=== PATIENT | male | born 1960 | race Two or more races ===

== ENCOUNTER → 2025-05-31 | Day surgery (SDC) | payer OTHER ==
[~2025-05-31] VITALS: Ht 180.3 cm; Wt 76.2 kg
[~2025-05-31] MED LIST: HEPARIN SODIUM (PORCINE) 5000 UNITS/ML 1ML VIAL ONE; HYDR1TAB97 PO; HYDROmorphone HCL 2 MG/ML VL/or syr IV PRN; HYDROmorphone HCL 2 MG/ML VL/or syr ONE; KETAMINE 50mg/ML 1ml syringe ONE; KETOROLAC TROMETH 30 MG/ML 1ML VIAL IV ONE; LIDOCAINE 1% HCL (LOCAL ANESTH.) INJ 20ML MDV ONE; LIDOCAINE 1% INJ PF 5ML AMP ONE; LIDOCAINE HCL 2% TOP JELLY 5ML TOP ONE; METOCLOPRAMIDE HCL 5MG/ml INJ 2ml VIAL IV ONE; MIDAZOLAM HCL 2MG/2ML 2ml VIAL (1mg/ml) ONE; MORPHINE SULFATE 4 MG/ML SYR/VIAL IV PRN; MORPHINE SULFATE INJ 2 MG/ml SYRG IV PRN; ONDANSETRON HCL 4 MG/2 ML VIAL ONE; PROPOFOL 10 MG/ML 20 ML IV ONE; ROCURONIUM 10MG/ML 10ML VIAL IV ONE; SODIUM CHLORIDE LOCK 10 ML ONE; SUCCINYLCHOLINE CHLORIDE 20 MG/ML 10ML VIAL IV ONE; SUGAMMADEX 200mg/2ml Vial (100MG/ML) IV ONE; ceFAZolin 2 GM/D5W50ml 50 ML IV ONE; fentaNYL CITRATE 100 MCG/2 ML VL ONE
[2025-05-31] MEDS: BUPIVACAINE 0.5% MPF INJ 30ML SDV IJ ONE (09:48)
[2025-05-31 10:03] VITALS: TEMP 98; O2SAT 97
--- NOTE | 2025-05-31 10:40 | DVHOP ---
DATE OF SURGERY: 05/31/2025 PREOPERATIVE DIAGNOSIS: Incarcerated umbilical hernia. POSTOPERATIVE DIAGNOSIS: Incarcerated umbilical hernia. PROCEDURE: Primary repair of incarcerated umbilical hernia. SURGEON: Quincy Ray MD [employer] PRESS OPERATOR: None. ANESTHESIOLOGIST: Dr. Tan. ANESTHESIA: General by means of endotracheal intubation. INTRAOPERATIVE FINDINGS: A 1 cm umbilical hernia with incarcerated preperitoneal fat within. ESTIMATED BLOOD LOSS: Minimal. INTRAVENOUS FLUIDS: Per anesthesia charting. URINE OUTPUT: Not recorded given Betts catheter was not inserted. DRAINS: None. IMPLANTS: None. SPECIMENS: None. COMPLICATIONS: None. DISPOSITION: Procedure well tolerated and transferred to recovery room in stable condition. INDICATIONS FOR PROCEDURE: The patient is a 64-year-old male with an incarcerated umbilical hernia who was recommended to undergo an umbilical hernia repair, possibly with mesh. The procedure, risks, and benefits were explained in a detailed and extensive fashion. All of his questions were answered. He understood and agreed to proceed. DESCRIPTION OF PROCEDURE: The patient was taken to the operating room. He was placed in the dorsal decubitus position on the operating room table. Once adequate anesthesia was achieved, the area was widely clipped from all hair surrounding the surgical field. It was then widely prepped and draped in the usual sterile fashion. My attention was directed towards the periumbilical region where local anesthesia consisting of 1% lidocaine/0.5% Marcaine was infiltrated. An infraumbilical curvilinear incision was made with a #15 blade. The dermis and subcutaneous tissue were incised to the level of the fascia with electrocautery. Circumferential dissection of the umbilical stalk and the hernia sac was performed with a clamp. The umbilical stalk was divided from the hernia sac using electrocautery without injury to the skin or hernia sac contents. Hernia sac demonstrated preperitoneal fat. The preperitoneal fat/sac was excised at the level of the fascia. This demonstrated a 1 cm umbilical hernia. At this time, the hernia was repaired in a primary fashion with interrupted 0 Vicryl sutures in a [id number] fashion x3. There was no evidence of active bleeding or injury. The umbilical stalk was tacked down to the underlying fascia by means of interrupted 3-0 Vicryl suture. The subcutaneous tissue and dermis were approximated with several interrupted 3-0 Vicryl suture. The skin was closed with 4-0 Monocryl in a subcuticular fashion. The wound was washed and dried. Sterile dressings were applied. The patient tolerated well procedure. There were no complications. He was successfully extubated in the operating room and transferred to recovery room in stable condition. MD JESSICA Courtney/JULIAN TID: [id number] RECEIPT: [id number]
[2025-05-31 10:45] VITALS: BP 145/92; PULSE 69; RESP 13; O2SAT 99
== END | disposition home or self-care (01) ==
LOC: SUR 07:11
DX: K42.0 Umbilical hernia with obstruction, without gangrene (principal); G89.29 Other chronic pain
CPT/HCPCS: 49592; 86850; 86900; 86901; J0330; J0690; J1100; J1171; J1644; J2003; J2250; J2405; J2704; J3010; J3490